=== PATIENT | male | born 1990 | race Caucasian/White ===

== ENCOUNTER 2016-03-26 15:07 | Emergency (ER) | payer OTHER ==
--- NOTE | 2016-03-26 15:41 | ED NURSING NOTES ---
Clinical Report - Nurses [facility] [address] [place] [address] 03/26/2016 15:08 Patient: YEIMY MOCTEZUMA TRIAGE Triage time 15:35. Acuity: LEVEL 4. Chief Complaint: TOOTHACHE. Alert. No acute distress. THELMA COMA SCORE: [place] Coma Scale: 15- eyes open spontaneously (4); best verbal response- oriented x 4 (5); best motor response- obeys commands (6). --15:40 Lillian Hay R.N. 15:35 03/26/16. BP: 133/88. HR: 7. RR: 18. O2 saturation: 97% on room air. Temp: 98.3 F (oral). Pain level now: 810. --15:40 Lillian Hay R.N. Weight: 81.6 kg stated. Height/Length: 74 inches Per Patient. BMI: 23.1. --15:38 Lillian Hay R.N. Medications None. --15:36 Lillian Hay R.N. Medication/allergy information source: the patient. --15:40 Lillian Hay R.N. Allergies Penicillins. --15:36 Lillian Hay R.N. Gabapentin. --15:36 Lillian Hay R.N. Hydrocodone. --15:37 Lillian Hay R.N. History Arrived by private vehicle. Historian: patient. Unaccompanied. Primary physician (Malik). Onset. (about 4 days). SOCIAL HX: Light tobacco smoker- less than 1/2 a pack per day. No alcohol use or drug use. FALL RISK ASSESSMENT: Fall risk assessment completed. No fall risk identified. FUNCTIONAL ASSESSMENT: Functional assessment: no impairments noted. LEARNING NEEDS ASSESSMENT: The learning needs assessment revealed no barriers. --15:40 Lillian Hay R.N. PROBLEMS: Cervical Radiculopathy. Wound Check. Back Injury. Herniated Disk. Myofascial Strain. URI. Otitis Media. Lumbar Strain. Crohn's Disease. Scoliosis. Back Pain. --15:39 Lillian Hay R.N. ADDITIONAL SURGERIES: Tympanostomy Tubes. --15:39 Lillian Hay R.N. Assessment GENERAL / NEURO / PSYCH: Alert. Oriented X 4. Appears in no acute distress. Patient appears calm and cooperative. RESPIRATORY: Respirations not labored. SKIN: Skin is warm and dry. --15:40 Lillian Hay R.N. Interventions ID and allergy band on patient. To treatment room. --15:40 Lillian Hay R.N. PHYSICAL ASSESSMENT 16:12 03/26/16. Ambulatory to room. GENERAL / NEURO / PSYCH: Alert. Oriented X 4. Appears in no acute distress. RESPIRATORY: Respirations not labored. SKIN: Skin is warm and dry. --16:12 Lillian Hay R.N. NURSING PROGRESS NOTES 15:50 03/26/2016 Clindamycin PO Tablets 150 mg given. Allergies verified and confirmed 5 rights. --16:01 Lillian Hay R.N. 15:35. Head of bed elevated. Call light placed in reach. Side rails up x 1. Bed placed in lowest position. --16:13 Lillian Hay R.N. 15:50. The patient is calm. Overall patient status is the same- he states feels the same. GENERAL / NEURO / PSYCH: Alert. Oriented X 4. RESPIRATORY: No respiratory distress. SKIN: Skin is warm and dry. --16:15 Lillian Hay R.N. DISPOSITION / DISCHARGE Departure time: 1550. Condition at departure: stable. No learning barriers present. Discharge instructions provided and reviewed with the patient. Reviewed medication(s). Prescription(s) given to the patient. Patient verbalized understanding. Written instructions provided in Welsh. The patient was discharged home and unaccompanied at time of discharge. He left the Emergency Department ambulatory and via private vehicle. FALL RISK ASSESSMENT: Fall risk assessment completed. No fall risk identified. --16:14 Lillian Hay R.N. 15:35 03/26/16. Pain level now: 5/10. --16:14 Lillian Hay R.N. Locked/Released at 03/26/2016 16:16 by Lillian Hay R.N.
--- NOTE | 2016-03-26 15:41 | ED ORDER SUMMARY ---
..... Patient: YEIMY MOCTEZUMA OrderSheet [facility] VisitID: [id number] [place] [address] 25y, M Registration Date/Time: 03/26/2016 ORDER SHEET Weight: 81.6 kg (stated) Allergies: Penicillins, Gabapentin, Hydrocodone GENERAL ORDERS: MEDICATION ORDERS: Tramadol PO 50 mg (NOW) (15:39 03/26/2016 Adan Ceballos.AIza-C) (Ack 15:44 Mike R.N.) (Cancelled: Patient [id number]:00 Mike R.N.) Clindamycin PO 150 mg (NOW) (15:40 03/26/2016 Adan Ceballos.AIza-C) (Ack 15:44 Mike R.N.) (16:01 Mike R.N.) IV FLUIDS: ORDER SHEET NOTES: [Electronically signed by Marian Aguayo P.A.-C (15:51 03/26/2016)] [Electronically signed by Lillian Hay R.N. (16:16 03/26/2016)] [Electronically locked/signed by Lillian Hay R.N. (16:16 03/26/2016)]
--- NOTE | 2016-03-26 15:41 | ED ORDER SUMMARY ---
..... Patient: YEIMY MOCTEZUMA OrderSheet [facility] VisitID: [id number] [place] [address] 25y, M Registration Date/Time: 03/26/2016 ORDER SHEET Weight: 81.6 kg (stated) Allergies: Penicillins, Gabapentin, Hydrocodone GENERAL ORDERS: MEDICATION ORDERS: Tramadol PO 50 mg (NOW) (15:39 03/26/2016 Adan Ceballos.AIza-C) (Ack 15:44 Mike R.N.) (Cancelled: Patient [id number]:00 Mike R.N.) Clindamycin PO 150 mg (NOW) (15:40 03/26/2016 Adan Ceballos.AIza-C) (Ack 15:44 Mike R.N.) (16:01 Mike R.N.) IV FLUIDS: ORDER SHEET NOTES: [Electronically signed by Marian Aguayo P.A.-C (15:51 03/26/2016)] [Electronically signed by Lillian Hay R.N. (16:16 03/26/2016)] [Electronically locked/signed by Lillian Hay R.N. (16:16 03/26/2016)]
--- NOTE | 2016-03-26 15:41 | ED CLINICAL REPORT ---
Clinical Report - Physicians/Mid Levels [facility] [address] [place] [address] 03/26/2016 15:08 Patient: YEIMY MOCTEZUMA Time Seen: 15:48 Mar 26 2016. Arrived- By private vehicle. Historian- patient. HISTORY OF PRESENT ILLNESS Chief Complaint: DENTAL PAIN. This started just prior to arrival and is still present. Pain described as mild. No mouth sores or nasal congestion. He has had toothache. (Patient reports right dental pain over the last 2 days, with facial swelling. Reports pain with eating and swallowing. Reports difficulty sleeping secondary to pain, has been taken Motrin. Denies any fevers or chills. Denies any cough. Denies any rashes. Denies any recent dental trauma. Reports history of recurrent problems with the right upper region of his teeth.). REVIEW OF SYSTEMS No fever, cough, difficulty with urination, skin rash or enlarged lymph nodes. All systems otherwise negative, except as recorded above. PAST HISTORY Problems: Cervical Radiculopathy. Wound Check. Back Injury. Herniated Disk. Myofascial Strain. URI. Otitis Media. Lumbar Strain. Crohn's Disease. Scoliosis. Back Pain. Additional Surgeries: Tympanostomy Tubes. Medications: None. Allergies: Gabapentin. Hydrocodone. Penicillins. SOCIAL HISTORY Smoker- current status unknown. No alcohol use or drug use. ADDITIONAL NOTES The nursing notes have been reviewed. PHYSICAL EXAM Vital Signs: 03/26/2016 15:35 BP: 133/88. HR: 7. RR: 18. O2 saturation: 97%. Temp: 98.3 F. Pain level now: 8/10. Appearance: Alert. ENT: Dental decay (canine). Ears normal. Nose normal. Pharynx normal. Lips normal. Gums normal. No trismus present. Uvula midline. No peritonsillar mass or dental tenderness. Neck: Trachea midline. No adenopathy. Thyroid normal. No thyromegaly. CVS: Normal heart rate and rhythm. Heart sounds normal. Respiratory: No respiratory distress. Breath sounds normal. Abdomen: Soft. Neuro: Oriented X 3. PROGRESS AND PROCEDURES Course of Care: Patient here in the ER, with right dental pain, and the canine, with tooth decay to the gumline, surrounding erythema, no palpable abscess or mass. Uvula is midline, no facial swelling externally noted. Patient able to swallow, no muffled voice. Tolerating his own secretions well. Patient is stable. Physical exam findings are improved. Patient/family counseled. Disposition: Discharged. Condition: good. CLINICAL IMPRESSION Moderate dental pain. INSTRUCTIONS Drink plenty of fluids. Prescription Medications: Cleocin 150 mg: take 1 capsule orally every 8 hours for 10 days. No refill. Substitution is permissible. Tylenol with Codeine Tylenol #3 (30 mg / 300 mg) : take 1 tablet orally every 6 hours as needed for pain. Dispense ten (10). No refill. Substitution is permissible. Follow-up: Follow up with your doctor in three days. Understanding of the discharge instructions verbalized by patient. (Electronically signed by Marian Aguayo P.A.-C 03/26/2016 15:51)
--- NOTE | 2016-03-26 15:41 | ED NURSING NOTES ---
Clinical Report - Nurses [facility] [address] [place] [address] 03/26/2016 15:08 Patient: YEIMY MOCTEZUMA TRIAGE Triage time 15:35. Acuity: LEVEL 4. Chief Complaint: TOOTHACHE. Alert. No acute distress. THELMA COMA SCORE: [place] Coma Scale: 15- eyes open spontaneously (4); best verbal response- oriented x 4 (5); best motor response- obeys commands (6). --15:40 Lillian Hay R.N. 15:35 03/26/16. BP: 133/88. HR: 7. RR: 18. O2 saturation: 97% on room air. Temp: 98.3 F (oral). Pain level now: 810. --15:40 Lillian Hay R.N. Weight: 81.6 kg stated. Height/Length: 74 inches Per Patient. BMI: 23.1. --15:38 Lillian Hay R.N. Medications None. --15:36 Lillian Hay R.N. Medication/allergy information source: the patient. --15:40 Lillian Hay R.N. Allergies Penicillins. --15:36 Lillian Hay R.N. Gabapentin. --15:36 Lillian Hay R.N. Hydrocodone. --15:37 Lillian Hay R.N. History Arrived by private vehicle. Historian: patient. Unaccompanied. Primary physician (Malik). Onset. (about 4 days). SOCIAL HX: Light tobacco smoker- less than 1/2 a pack per day. No alcohol use or drug use. FALL RISK ASSESSMENT: Fall risk assessment completed. No fall risk identified. FUNCTIONAL ASSESSMENT: Functional assessment: no impairments noted. LEARNING NEEDS ASSESSMENT: The learning needs assessment revealed no barriers. --15:40 Lillian Hay R.N. PROBLEMS: Cervical Radiculopathy. Wound Check. Back Injury. Herniated Disk. Myofascial Strain. URI. Otitis Media. Lumbar Strain. Crohn's Disease. Scoliosis. Back Pain. --15:39 Lillian Hay R.N. ADDITIONAL SURGERIES: Tympanostomy Tubes. --15:39 Lillian Hay R.N. Assessment GENERAL / NEURO / PSYCH: Alert. Oriented X 4. Appears in no acute distress. Patient appears calm and cooperative. RESPIRATORY: Respirations not labored. SKIN: Skin is warm and dry. --15:40 Lillian Hay R.N. Interventions ID and allergy band on patient. To treatment room. --15:40 Lillian Hay R.N. PHYSICAL ASSESSMENT 16:12 03/26/16. Ambulatory to room. GENERAL / NEURO / PSYCH: Alert. Oriented X 4. Appears in no acute distress. RESPIRATORY: Respirations not labored. SKIN: Skin is warm and dry. --16:12 Lillian Hay R.N. NURSING PROGRESS NOTES 15:50 03/26/2016 Clindamycin PO Tablets 150 mg given. Allergies verified and confirmed 5 rights. --16:01 Lillian Hay R.N. 15:35. Head of bed elevated. Call light placed in reach. Side rails up x 1. Bed placed in lowest position. --16:13 Lillian Hay R.N. 15:50. The patient is calm. Overall patient status is the same- he states feels the same. GENERAL / NEURO / PSYCH: Alert. Oriented X 4. RESPIRATORY: No respiratory distress. SKIN: Skin is warm and dry. --16:15 Lillian Hay R.N. DISPOSITION / DISCHARGE Departure time: 1550. Condition at departure: stable. No learning barriers present. Discharge instructions provided and reviewed with the patient. Reviewed medication(s). Prescription(s) given to the patient. Patient verbalized understanding. Written instructions provided in Pashto. The patient was discharged home and unaccompanied at time of discharge. He left the Emergency Department ambulatory and via private vehicle. FALL RISK ASSESSMENT: Fall risk assessment completed. No fall risk identified. --16:14 Lillian Hay R.N. 15:35 03/26/16. Pain level now: 5/10. --16:14 Lillian Hay R.N. Locked/Released at 03/26/2016 16:16 by Lillian Hay R.N.
--- NOTE | 2016-03-26 15:41 | ED CLINICAL REPORT ---
Clinical Report - Physicians/Mid Levels [facility] [address] [place] [address] 03/26/2016 15:08 Patient: YEIMY MOCTEZUMA Time Seen: 15:48 Mar 26 2016. Arrived- By private vehicle. Historian- patient. HISTORY OF PRESENT ILLNESS Chief Complaint: DENTAL PAIN. This started just prior to arrival and is still present. Pain described as mild. No mouth sores or nasal congestion. He has had toothache. (Patient reports right dental pain over the last 2 days, with facial swelling. Reports pain with eating and swallowing. Reports difficulty sleeping secondary to pain, has been taken Motrin. Denies any fevers or chills. Denies any cough. Denies any rashes. Denies any recent dental trauma. Reports history of recurrent problems with the right upper region of his teeth.). REVIEW OF SYSTEMS No fever, cough, difficulty with urination, skin rash or enlarged lymph nodes. All systems otherwise negative, except as recorded above. PAST HISTORY Problems: Cervical Radiculopathy. Wound Check. Back Injury. Herniated Disk. Myofascial Strain. URI. Otitis Media. Lumbar Strain. Crohn's Disease. Scoliosis. Back Pain. Additional Surgeries: Tympanostomy Tubes. Medications: None. Allergies: Gabapentin. Hydrocodone. Penicillins. SOCIAL HISTORY Smoker- current status unknown. No alcohol use or drug use. ADDITIONAL NOTES The nursing notes have been reviewed. PHYSICAL EXAM Vital Signs: 03/26/2016 15:35 BP: 133/88. HR: 7. RR: 18. O2 saturation: 97%. Temp: 98.3 F. Pain level now: 8/10. Appearance: Alert. ENT: Dental decay (canine). Ears normal. Nose normal. Pharynx normal. Lips normal. Gums normal. No trismus present. Uvula midline. No peritonsillar mass or dental tenderness. Neck: Trachea midline. No adenopathy. Thyroid normal. No thyromegaly. CVS: Normal heart rate and rhythm. Heart sounds normal. Respiratory: No respiratory distress. Breath sounds normal. Abdomen: Soft. Neuro: Oriented X 3. PROGRESS AND PROCEDURES Course of Care: Patient here in the ER, with right dental pain, and the canine, with tooth decay to the gumline, surrounding erythema, no palpable abscess or mass. Uvula is midline, no facial swelling externally noted. Patient able to swallow, no muffled voice. Tolerating his own secretions well. Patient is stable. Physical exam findings are improved. Patient/family counseled. Disposition: Discharged. Condition: good. CLINICAL IMPRESSION Moderate dental pain. INSTRUCTIONS Drink plenty of fluids. Prescription Medications: Cleocin 150 mg: take 1 capsule orally every 8 hours for 10 days. No refill. Substitution is permissible. Tylenol with Codeine Tylenol #3 (30 mg / 300 mg) : take 1 tablet orally every 6 hours as needed for pain. Dispense ten (10). No refill. Substitution is permissible. Follow-up: Follow up with your doctor in three days. Understanding of the discharge instructions verbalized by patient. (Electronically signed by Marian Aguayo P.A.-C 03/26/2016 15:51)
--- NOTE | 2016-03-26 16:16 | ED MAR SUMMARY ---
..... Medication Administration Record [facility] [address] [place] [address] Patient: YEIMY MOCTEZUMA Visit ID: [id number] 25y, M Weight: 81.6 kg Height/Length: 74 in BMI: 23.1 ALLERGIES: Hydrocodone, Penicillins, Gabapentin Given 15:50 03/26/2016 Lillian Hay RGerman Medication Administered: CLINDAMYCIN [PO], Dose: 150 mg Tablets PO. Medication Ordered: Clindamycin PO 150 mg (NOW).
--- NOTE | 2016-03-26 16:16 | ED MAR SUMMARY ---
..... Medication Administration Record [facility] [address] [place] [address] Patient: YEIMY MOCTEZUMA Visit ID: [id number] 25y, M Weight: 81.6 kg Height/Length: 74 in BMI: 23.1 ALLERGIES: Hydrocodone, Penicillins, Gabapentin Given 15:50 03/26/2016 Lillian Hay RGerman Medication Administered: CLINDAMYCIN [PO], Dose: 150 mg Tablets PO. Medication Ordered: Clindamycin PO 150 mg (NOW).
--- NOTE | 2016-03-26 16:16 | ED MED RECONCILIATION SUMMARY ---
Patient: YEIMY MOCTEZUMA Medication Reconciliation Report [facility] VisitID: [id number] [place] [address] 25y, M Registration Date/Time: 03/26/2016 Weight: 81.6 kg Height/Length: 74 in. BMI: 23.1 ALLERGIES: Gabapentin, Hydrocodone, Penicillins The patient's Home Medications are listed below: NONE. The source(s) of the original Home Medication information: patient The following Medications were given to the patient in the Emergency Department: Clindamycin [PO] PO 150 mg, administered: 03/26/2016 3:50:00 PM The following Medications were prescribed to the patient: Cleocin 150 mg: take 1 capsule orally every 8 hours for 10 days. No refill. Substitution is permissible. -- Marian Aguayo, P.A.-C Tylenol with Codeine Tylenol #3 (30 mg / 300 mg) : take 1 tablet orally every 6 hours as needed for pain. Dispense ten (10). No refill. Substitution is permissible. -- Marian Aguayo, P.A.-C
--- NOTE | 2016-03-26 16:16 | ED DISCHARGE INSTRUCTIONS ---
Patient: YEIMY MOTCEZUMA General Instructions [facility] VisitID: [id number] [place] [address] 25y, M Registration Date/Time: 03/26/2016 Moderate dental pain. INSTRUCTIONS Drink plenty of fluids. Prescription Medications: Cleocin 150 mg: take 1 capsule orally every 8 hours for 10 days. No refill. Substitution is permissible. Tylenol with Codeine Tylenol #3 (30 mg / 300 mg) : take 1 tablet orally every 6 hours as needed for pain. Dispense ten (10). No refill. Substitution is permissible. Follow-up: Follow up with your doctor in three days. Understanding of the discharge instructions verbalized by patient. ADDITIONAL INFORMATION Dental Pain A crack or cavity in the tooth, which exposes the sensitive inner area of the tooth can cause tooth pain. An infection in the gum or the root of the tooth can cause pain and swelling. The pain is often made worse by drinking hot or cold fluids, or biting on hard foods. Pain may spread from the tooth to the ear or jaw on the same side. Home Care: Avoid hot and cold foods and liquids since your tooth may be sensitive to temperature changes. If your tooth is chipped or cracked, or if there is a large open cavity, apply OIL OF CLOVES (available [id number]-fclqrid in drug stores) directly to the tooth to reduce pain. Some pharmacies carry an jwgt-rlm-padsgxi "toothache kit." This contains a paste, which can be applied over the exposed tooth to decrease sensitivity. A cold pack on your jaw over the sore area may help reduce pain. You may use acetaminophen (Tylenol) or ibuprofen (Motrin, Advil) to control pain, unless another medicine was prescribed. [ NOTE: If you have chronic liver or kidney disease or ever had a stomach ulcer or GI bleeding, talk with your doctor before using these medicines.] If you have signs of an infection, an antibiotic will be given. Take it as directed. Follow-Up as directed with a dentist. Your pain may go away with the treatment given. However, only a dentist can fully evaluate and treat the cause and prevent the pain from coming back again. TOOTHACHE IS A SIGN OF DISEASE IN YOUR TOOTH AND SHOULD BE EXAMINED AND TREATED BY A DENTIST. Get Prompt Medical Attention if any of the following occur: Your face becomes swollen or red Pain worsens or spreads to the neck Fever over 100.4 F (38.0 C) Unusual drowsiness; headache or stiff neck; weakness or fainting Pus drains from the tooth Difficulty swallowing or breathing Clindamycin Hydrochloride Oral capsule What is this medicine? CLINDAMYCIN (ROSSANAIN amy MANLEY sin) is a lincosamide antibiotic. It is used to treat certain kinds of bacterial infections. It will not work for colds, flu, or other viral infections. How should I use this medicine? Take this medicine by mouth with a full glass of water. Follow the directions on the prescription label. You can take this medicine with food or on an empty stomach. If the medicine upsets your stomach, take it with food. Take your medicine at regular intervals. Do not take your medicine more often than directed. Take all of your medicine as directed even if you think your are better. Do not skip doses or stop your medicine early. Talk to your sizing machine operator regarding the use of this medicine in children. Special care may be needed. What side effects may I notice from receiving this medicine? Side effects that you should report to your doctor or health group care worker as soon as possible: allergic reactions like skin rash, itching or hives, swelling of the face, lips, or tongue dark urine pain on swallowing redness, blistering, peeling or loosening of the skin, including inside the mouth unusual bleeding or bruising unusually weak or tired yellowing of eyes or skin Side effects that usually do not require medical attention (report to your doctor or health group care worker if they continue or are bothersome): diarrhea itching in the rectal or genital area joint pain nausea, vomiting stomach pain What may interact with this medicine? chloramphenicol erythromycin kaolin products What if I miss a dose? If you miss a dose, take it as soon as you can. If it is almost time for your next dose, take only that dose. Do not take double or extra doses. Where should I keep my medicine? Keep out of the reach of children. Store at room temperature between 20 and 25 degrees C (68 and 77 degrees F). Throw away any unused medicine after the expiration date. What should I tell my health care provider before I take this medicine? They need to know if you have any of these conditions: kidney disease liver disease stomach problems like colitis an unusual or allergic reaction to clindamycin, lincomycin, or other medicines, foods, dyes like tartrazine or preservatives or trying to get breast-feeding What should I watch for while using this medicine? Tell your doctor or healthcare professional if your symptoms do not start to get better or if they get worse. Do not treat diarrhea with over the counter products. Contact your doctor if you have diarrhea that lasts more than 2 days or if it is severe and watery. Acetaminophen, Codeine Phosphate Oral tablet What is this medicine? ACETAMINOPHEN; CODEINE (a set a ALPHONSE oumou fen; KOE huber) is a pain reliever. It is used to treat mild to moderate pain. How should I use this medicine? Take this medicine by mouth with a full glass of water. Follow the directions on the prescription label. If the medicine upsets your stomach, take the medicine with food or milk. Do not take more medicine than you are told to take. Talk to your sizing machine operator regarding the use of this medicine in children. Special care may be needed. What side effects may I notice from receiving this medicine? Side effects that you should report to your doctor or health group care worker as soon as possible: allergic reactions like skin rash, itching or hives, swelling of the face, lips, or tongue breathing difficulties, wheezing confusion light headedness or fainting spells severe stomach pain yellowing of the skin or the whites of the eyes Side effects that usually do not require medical attention (report to your doctor or health group care worker if they continue or are bothersome): dizziness drowsiness nausea, vomiting What may interact with this medicine? alcohol antihistamines benztropine drugs for bladder problems like solifenacin, trospium, oxybutynin, tolterodine, hycosamine, and methscopolamine drugs for breathing problems like ipratropium and tiotropium drugs for certain stomach or intestine problems like propantheline, homatropine methylbromide, glycopyrrolate, atropine, belladonna, and dicyclomine medicines for depression, anxiety, or psychotic disturbances medicines for sleep muscle relaxants naltrexone narcotic medicines (opiates) for pain phenothiazines like perphenazine, thioridazine, chlorpromazine, mesoridazine, fluphenazine, prochlorperazine, promazine, trifluoperazine scopolamine tramadol trihexyphenidyl What if I miss a dose? If you miss a dose, take it as soon as you can. If it is almost time for your next dose, take only that dose. Do not take double or extra doses. Where should I keep my medicine? Keep out of the reach of children. This medicine can be abused. Keep your medicine in a safe place to protect it from theft. Do not share this medicine with anyone. Selling or giving away this medicine is dangerous and against the law. Store at room temperature between 15 and 30 degrees C (59 and 86 degrees F). Protect from light. Keep container tightly closed. Throw away any unused medicine after the expiration date. Discard unused medicine and used packaging carefully. Pets and children can be harmed if they find used or lost packages. What should I tell my health care provider before I take this medicine? They need to know if you have any of these conditions: brain tumor Crohn's disease, inflammatory bowel disease, or ulcerative colitis drink more than 3 alcohol containing drinks per day drug abuse or addiction head injury heart or circulation problems kidney disease or problems going to the bathroom liver disease lung disease, asthma, or breathing problems an unusual or allergic reaction to acetaminophen, codeine, salicylates, other opioid analgesics, other medicines, foods, dyes, or preservatives or trying to get breast-feeding What should I watch for while using this medicine? Tell your doctor or health group care worker if your pain does not go away, if it gets worse, or if you have new or a different type of pain. You may develop tolerance to the medication. Tolerance means that you will need a higher dose of the medication for pain relief. Tolerance is normal and is expected if you take the medicine for a long time. Do not suddenly stop taking your medicine because you may develop a severe reaction. Your body becomes used to the medicine. This does NOT mean you are addicted. Addiction is a behavior related to getting and using a drug for a non medical reason. If you have pain, you have a medical reason to take pain medicine. Your doctor will tell you how much medicine to take. If your doctor wants you to stop the medicine, the dose will be slowly lowered over time to avoid any side effects. You may get drowsy or dizzy. Do not drive, use machinery, or do anything that needs mental alertness until you know how this medicine affects you. Do not stand or sit up quickly, especially if you are an older patient. This reduces the risk of dizzy or fainting spells. Alcohol may interfere with the effect of this medicine. Avoid alcoholic drinks. There are different types of narcotic medicines (opiates) for pain. If you take more than one type at the same time, you may have more side effects. Give your health care provider a list of all medicines you use. Your doctor will tell you how much medicine to take. Do not take more medicine than directed. Call emergency for help if you have problems breathing. The medicine will cause constipation. Try to have a bowel movement at least every 2 to 3 days. If you do not have a bowel movement for 3 days, call your doctor or health group care worker. Do not take Tylenol (acetaminophen) or medicines that have acetaminophen with this medicine. Too much acetaminophen can be very dangerous. Many nonprescription medicines contain acetaminophen. Always read the labels carefully to avoid taking more acetaminophen. Immediately call your physician or get emergency help if you are breast-feeding and your baby is sleepier than usual, is limp, or has difficulty or breathing. You have been given the following additional information: Dental Pain Clindamycin Hydrochloride Oral capsule Acetaminophen, Codeine Phosphate Oral tablet (Electronically signed by Marian Aguayo P.A.-C 03/26/2016 15:51)
--- NOTE | 2016-03-26 16:16 | ED MED RECONCILIATION SUMMARY ---
Patient: YEIMY MOCTEZUMA Medication Reconciliation Report [facility] VisitID: [id number] [place] [address] 25y, M Registration Date/Time: 03/26/2016 Weight: 81.6 kg Height/Length: 74 in. BMI: 23.1 ALLERGIES: Gabapentin, Hydrocodone, Penicillins The patient's Home Medications are listed below: NONE. The source(s) of the original Home Medication information: patient The following Medications were given to the patient in the Emergency Department: Clindamycin [PO] PO 150 mg, administered: 03/26/2016 3:50:00 PM The following Medications were prescribed to the patient: Cleocin 150 mg: take 1 capsule orally every 8 hours for 10 days. No refill. Substitution is permissible. -- Marian Aguayo, P.A.-C Tylenol with Codeine Tylenol #3 (30 mg / 300 mg) : take 1 tablet orally every 6 hours as needed for pain. Dispense ten (10). No refill. Substitution is permissible. -- Marian Aguayo, P.A.-C
== END 2016-03-26 15:50 | disposition home or self-care (01) ==
LOC: ED SRH 15:07
DX: K08.89 Other specified disorders of teeth and supporting structures (principal); K02.9 Dental caries, unspecified; Z88.5 Allergy status to narcotic agent; Z88.0 Allergy status to penicillin

== ENCOUNTER 2016-04-01 17:12 | Emergency (ER) | payer OTHER ==
--- NOTE | 2016-04-01 17:52 | DIAGNOSTIC IMAGING REPORT ---
PROCEDURE: XR CERVICAL SPINE 2 OR 3 VIEW INDICATION: NECK TRAUMA/INJURY TECHNIQUE: Three views. COMPARISON: Compare radiographs of the cervical spine and 12/01/2015. FINDINGS: Osseous structures and disc spaces are normal. No evidence of an acute process or fracture. IMPRESSION: 1. Negative cervical spine.
--- NOTE | 2016-04-01 17:56 | ED CLINICAL REPORT ---
Clinical Report - Physicians/Mid Levels [facility] [address] [place] [address] 04/01/2016 17:12 Patient: YEIMY MOCTEZUMA Time Seen: 17:16; initial patient contact, initial documentation, patient care assumed. Arrived- By private vehicle. Historian- patient. RETURN VISIT: recently seen in this ED by another ED physician. Seen now for a new unrelated complaint. HISTORY OF PRESENT ILLNESS Chief Complaint: NECK PAIN. Onset- about 1 weeks ago and it is still present. Modifying factors- worsened by rotation of the head to the right or left or neck flexion. Relieved by taking prescription medications. It is described as being moderate in degree and in the area of the cervical spine and right side of the cervical spine. The quality is noted to be "pain". No radiation. No bladder dysfunction, bowel dysfunction, sensory loss or motor loss. Patient notes the possibility of an injury but denies injury to the head or chest. Mechanism of injury- (was hit in back of head and neck by gas tank). No other injury. Similar symptoms previously: None. Recent medical care: The patient was seen recently at this facility and another facility in the emergency department. ( txed at [facility] on 03/28 for same thing, which pt didn't tell me about, found this info on tamiko report was also seen here a few days ago for tooth abscess). REVIEW OF SYSTEMS No difficulty breathing, chest pain or abdominal pain. All systems otherwise negative, except as recorded above. PAST HISTORY See nurses notes. PROBLEMS: Dental Pain. Cervical Radiculopathy. Back Injury. Herniated Disk. Myofascial Strain. Otitis Media. Lumbar Strain. Crohn's Disease. Scoliosis. Back Pain. --17:23 Carrol Wilson R.N. ADDITIONAL SURGERIES: Tympanostomy Tubes. --17:23 Carrol Wilson R.N. SOCIAL HISTORY Light tobacco smoker. Occasional alcohol use. No drug use. Is a local resident. FAMILY HISTORY Negative. ADDITIONAL NOTES The nursing notes have been reviewed with agreement regarding the chief complaint, HPI, ROS, PMH and patient medications and allergies. PHYSICAL EXAM Vital Signs: 04/01/2016 17:20 BP: 112/85. HR: 108. RR: 18. O2 saturation: 100%. Temp: 98.5 F. Pain level now: 10/13. Have been reviewed as abnormal and appear to be correct. Blood pressure normal. Tachycardic. Respiratory rate normal. Temperature normal. Oxygen saturation normal. Appearance: Alert. No acute distress. HEENT: Normal external inspection. Eyes: Pupils equal, round and reactive to light. ENT: Ears normal. Pharynx normal. Neck: Neck tenderness. Abnormal inspection. Painful ROM. Mild pain in the entire posterior neck upon turning the head to the right, turning the head to the left, lifting the head, flexing the neck and extending the neck. Decrease in ROM. No muscle spasm in the neck. Mild vertebral tenderness of the lower cervical spine. Soft tissue tenderness in the right lower neck area. No lymphadenopathy or meningeal signs. CVS: Normal heart rate and rhythm. Heart sounds normal. Pulses normal. Respiratory: No respiratory distress. Breath sounds normal. Chest nontender. Back: Normal inspection. No tenderness. Painless ROM. Skin: Skin warm and dry. Normal skin color. No rash. Normal skin turgor. Extremities: Extremities exhibit normal ROM. Extremities nontender. Neuro: Oriented X 3. Mood/affect normal. No motor deficit. No sensory deficit. LABS, X-RAYS, AND EKG X-Rays: C-spine series negative. C-Spine X-rays: (IMPRESSION: 1. Negative cervical spine. Electronically Final signed by:Shailesh Lopez MD 04/01/2016 5:48:52 PM). PROGRESS AND PROCEDURES Course of Care: 17:37 04/01/16. pt has tamiko for narcs and frequent er visits, pt has been to ER x4 visit in Mar, today is 5th visit, see report for full details, got narcs filled on 03/26, 03/29 and 03/30. Patient counseled in person regarding the patient's stable condition, test results and diagnosis. 17:55. Differential Diagnosis: I considered sprain, ligament injury, tendon injury, fracture, stress fracture, degenerative joint disease and arthritis as a possible cause of joint pain in this patient. (substance abuse, cervical stenosis). Above considerations are based on history, physical exam and X-Ray data. Differential diagnosis was discussed with patient. Disposition: Discharged home in good and unchanged condition (17:56). Condition: good and stable. CLINICAL IMPRESSION Acute neck pain associated with cervical strain. No neuro deficit. INSTRUCTIONS Warnings: GENERAL WARNINGS: Return or contact your physician immediately if your condition worsens or changes unexpectedly, if not improving as expected, or if other problems arise. SPECIFICALLY, return if you develop numbness or incontinence of feces (loss of bowel control) or urine (loss of bladder control). Prescription Medications: Naproxen 500 mg tablets: take 1 orally every 12 hours as needed for pain. Dispense twenty (20). No refills. Flexeril 10 mg: Take 1 orally every 8 hours as needed for muscle spasm. Dispense twenty (20). No refills. Substitution is permissible. Follow-up: Follow up with your doctor in about one week as needed. Call for an appointment. Summary of care provided to patient. Understanding of the discharge instructions verbalized by patient. Follow-up with: Janice Fitzgerald MD, Neurology, , [address] , [place], [id number] Follow up in about one week as needed. Call for an appointment. Summary of care provided to patient. (Electronically signed by Maria De Jesus Cristina A.R.N.P. 04/01/2016 18:59)
--- NOTE | 2016-04-01 17:56 | ED ORDER SUMMARY ---
..... Patient: YEIMY MOCTEZUMA OrderSheet [facility] VisitID: [id number] [address] [place] [address] 25y, M Registration Date/Time: 04/01/2016 ORDER SHEET Weight: 81.6 kg (stated) Allergies: Penicillins, Gabapentin, Hydrocodone GENERAL ORDERS: Cervical Spine 2 or 3V Urgent (17:35 04/01/2016 Alex A.R.N.P.) (17:55 [facility]) MEDICATION ORDERS: IV FLUIDS: ORDER SHEET NOTES: [Electronically signed by Carrol Wilson R.N. (18:14 04/01/2016)] [Electronically signed by Maria De Jesus CristinaR.N.PIza (18:59 04/01/2016)] [Electronically locked/signed by Carrol Wilson R.N. (18:14 04/01/2016)]
--- NOTE | 2016-04-01 17:56 | ED ORDER SUMMARY ---
..... Patient: YEIMY MOCTEZUMA OrderSheet [facility] VisitID: [id number] [address] [place] [address] 25y, M Registration Date/Time: 04/01/2016 ORDER SHEET Weight: 81.6 kg (stated) Allergies: Penicillins, Gabapentin, Hydrocodone GENERAL ORDERS: Cervical Spine 2 or 3V Urgent (17:35 04/01/2016 Alex A.R.N.P.) (17:55 [facility]) MEDICATION ORDERS: IV FLUIDS: ORDER SHEET NOTES: [Electronically signed by Carrol Wilson R.N. (18:14 04/01/2016)] [Electronically signed by Maria De Jesus CristinaR.N.PIza (18:59 04/01/2016)] [Electronically locked/signed by Carrol Wilson R.N. (18:14 04/01/2016)]
--- NOTE | 2016-04-01 17:56 | ED NURSING NOTES ---
Clinical Report - Nurses [facility] [address] [place] [address] 04/01/2016 17:12 Patient: YEIMY MOCTEZUMA TRIAGE Triage time 17:Apr 01 2016. Acuity: LEVEL 4. Chief Complaint: (gas tank fell on head). SEPSIS SCREEN: Sepsis Screen: negative. Negative (no infection suspected/documented). THELMA COMA SCORE: [place] Coma Scale: 15- eyes open spontaneously (4); best verbal response- oriented x 4 (5); best motor response- obeys commands (6). --17:26 Carrol Wilson R.N. 17:20 04/01/16. BP: 112/85. HR: 108. RR: 18. O2 saturation: 100%. Temp: 98.5 F. Pain level now: 10/13. --17:26 Carrol Wilson R.N. Weight: 81.6 kg stated. Height/Length: 74 inches Per Patient. BMI: 23.1. --17:19 Carrol Wilson R.N. Medications Clindamycin HCl Oral. --17:22 Carrol Wilson R.N. Medication/allergy information source: the patient. --17:26 Carrol Wilson R.N. Allergies Penicillins. --17:23 Carrol Wilson R.N. Gabapentin. --17:23 Carrol Wilson R.N. Hydrocodone. --17:23 Carrol Wilson R.N. History Arrived by private vehicle. Historian: patient. Location of injuries: neck. This occurred (7 days ago). ( states was helping his friend work on a car, he was reaching for a tool and knocked a gas tank over and it struck him on the top of the head. no loss of consciousness. Complains of head ache and neck pain. States this happened 1 week ago). He has had a headache and neck pain. No loss of consciousness. Treatment HOME WEATHERIZING WORKER: None. SOCIAL HX: Light tobacco smoker (cigarette)- less than 1/2 a pack per day. History of drug use: marijuana. No alcohol use. No infectious disease exposure. ABUSE ASSESSMENT: No report of abuse. SELF HARM ASSESSMENT: A self harm assessment was performed. The patient answered "no" to the question "Have you recently felt down, depressed, or hopeless?", "Have you noticed less interest or pleasure in doing things?", "Do you have thoughts of harming or killing yourself?", "Are you here because you tried to hurt yourself?", "Have you ever tried to hurt yourself before today?", "Have you recently had thoughts about harming or killing others?" and "Do you have any dangerous items in your possession?". --17:26 Carrol Wilson R.N. PROBLEMS: Dental Pain. Cervical Radiculopathy. Back Injury. Herniated Disk. Myofascial Strain. Otitis Media. Lumbar Strain. Crohn's Disease. Scoliosis. Back Pain. --17:23 Carrol Wilson R.N. ADDITIONAL SURGERIES: Tympanostomy Tubes. --17:23 Carrol Wilson R.N. Interventions ID band on patient. --17:26 Carrol Wilson R.N. PHYSICAL ASSESSMENT 17:20 04/01/16. GENERAL / NEURO / PSYCH: Alert. Oriented X 4. Appears in no acute distress. HEENT: Pupils equal, round and reactive to light. Head non-tender. Neck: tenderness (cervical spine surrounding tissue.). No deformity. No tracheal deviation. Head: tenderness (top of head). RESPIRATORY: Breath sounds within normal limits. CVS: Pulses within normal limits. Capillary refill less than 2 seconds. GI / : Abdomen soft. EXTREMITIES: Extremities exhibit normal ROM. Neuro-vascular status intact to the extremity. SKIN: Skin intact. Skin is warm and dry. --17:49 Carrol Wilson R.N. NURSING PROGRESS NOTES 17:20 04/01/16. The initial plan of care for this patient includes an assessment with efforts to address the presence of pain. This plan of care was discussed with the patient. Patient gowned. Patient identifiers checked. Call light placed in reach. Bed placed in lowest position. Brakes of bed on. Patient ready for evaluation. --17:49 Carrol Wilson R.N. Patient walked to radiology with tech. (and returned). --17:49 Carrol Wilson R.N. DISPOSITION / DISCHARGE 18:13 04/01/16. Condition at departure: unchanged and stable. The goals identified in the patient's plan of care were met. Reviewed medication(s) side effects, precautions, dosing and course information. Prescription(s) given to the patient. Reviewed referral to a primary care physician for followup. Patient verbalized understanding. Written instructions provided in [place]olan. ( PATIENT UPSET HE DID NOT RECEIVE STRONGER MEDICINE PRESCRIPTIONS.). The patient was discharged home and unaccompanied at time of discharge. He left the Emergency Department ambulatory and via private vehicle. FALL RISK ASSESSMENT: Fall risk assessment completed. No fall risk identified. --18:13 Carrol Wilson R.N. 17:20 04/01/16. BP: 112/85. HR: 108. RR: 18. O2 saturation: 100%. Temp: 98.5 F. Pain level now: 10/13. --18:13 Carrol Wilson R.N. Departure time: 18:13 Apr 01 2016. --18:13 Carrol Wilson R.N. Locked/Released at 04/01/2016 18:14 by Carrol Wilson R.N.
--- NOTE | 2016-04-01 19:00 | ED MED RECONCILIATION SUMMARY ---
Patient: YEIMY MOCTEZUMA Medication Reconciliation Report [facility] VisitID: [id number] [address] [place] [address] 25y, M Registration Date/Time: 04/01/2016 Weight: 81.6 kg Height/Length: 74 in. BMI: 23.1 ALLERGIES: Gabapentin, Hydrocodone, Penicillins The patient's Home Medications are listed below: THE FOLLOWING MEDICATIONS NEED TO BE RECONCILED: Clindamycin HCl Oral The source(s) of the original Home Medication information: patient The following Medications were given to the patient in the Emergency Department: None. The following Medications were prescribed to the patient: Naproxen 500 mg tablets: take 1 orally every 12 hours as needed for pain. Dispense twenty (20). No refills. -- Maria De Jesus Cristina A.R.NIzaP. Flexeril 10 mg: Take 1 orally every 8 hours as needed for muscle spasm. Dispense twenty (20). No refills. Substitution is permissible. -- Maria De Jesus Cristina A.R.N.P.
--- NOTE | 2016-04-01 19:00 | ED MAR SUMMARY ---
..... Medication Administration Record [facility] [address] [place], [place] [id number] Patient: YEIMY MOCTEZUMA Visit ID: [id number] 25y, M Weight: 81.6 kg Height/Length: 74 in BMI: 23.1 ALLERGIES: Hydrocodone, Gabapentin, Penicillins
--- NOTE | 2016-04-01 19:00 | ED DISCHARGE INSTRUCTIONS ---
Patient: YEIMY MOCTEZUMA General Instructions [facility] VisitID: [id number] [address] [place] [address] 25y, M Registration Date/Time: 04/01/2016 Acute neck pain associated with cervical strain. No neuro deficit. INSTRUCTIONS Warnings: GENERAL WARNINGS: Return or contact your physician immediately if your condition worsens or changes unexpectedly, if not improving as expected, or if other problems arise. SPECIFICALLY, return if you develop numbness or incontinence of feces (loss of bowel control) or urine (loss of bladder control). Prescription Medications: Naproxen 500 mg tablets: take 1 orally every 12 hours as needed for pain. Dispense twenty (20). No refills. Flexeril 10 mg: Take 1 orally every 8 hours as needed for muscle spasm. Dispense twenty (20). No refills. Substitution is permissible. Follow-up: Follow up with your doctor in about one week as needed. Call for an appointment. Summary of care provided to patient. Understanding of the discharge instructions verbalized by patient. Follow-up with: Janice Fitzgerald MD, Neurology, , [address] , [place], [id number] Follow up in about one week as needed. Call for an appointment. Summary of care provided to patient. ADDITIONAL INFORMATION Neck Pain [No Trauma] There are several possible causes of neck pain without injury: You can get a minor ligament sprain or muscle strain from a sudden minor neck movement. Sleeping with your neck in an awkward position can also cause this. Some persons respond to emotional stress by tensing the muscles of their neck, shoulders and upper back. Chronic spasm in these muscles can cause neck pain and sometimes headaches. Gradualwear and tearof the joints in the spine can cause degenerative arthritis.This can be a source of occasional or chronic neck pain. With aging or repeated small injuries to the neck, the spinal disks (the cushions between each spinal bone) may bulge and put pressure on a nearby spinal nerve. This causes tingling, pain or numbness spreading from the neck to the shoulder, arm or hand on one side. Acute neck pain usually gets better in one to two weeks. Neck pain related to disk disease, arthritis in the spinal joints or spinal stenosis (narrowing of the spinal canal) can become chronic and last for months or years. Unless you had a forceful physical injury (for example, a car accident or fall), X-rays are usually not ordered for the initial evaluation of neck pain. If pain continues and does not respond to medical treatment, x-rays and other tests may be performed at a later time. Home Care: Rest and relax the muscles. Use a comfortable pillow that supports the head and keeps the spine in a neutral position. The position of the head should not be tilted forward or backward. A rolled up towel may help for a custom fit. Some persons find relief with heat (hot shower, hot bath or heating pad) and massage, while others prefer cold packs (crushed or cubed ice in a plastic bag, wrapped in a towel) . Try both and use the method that feels best for 20 minutes several times a day. You may use acetaminophen (Tylenol) or ibuprofen (Motrin, Advil) to control pain, unless another medicine was prescribed. [ NOTE : If you have chronic liver or kidney disease or ever had a stomach ulcer or GI bleeding, talk with your doctor before using these medicines.] Follow Up with your physician or this facility if your symptoms do not show signs of improvement after one week. Physical therapy or further tests may be needed. [NOTE: A radiologist will review any X-rays or CT scans that were taken. We will notify you of any new findings that may affect your care.] Get Prompt Medical Attention if any of the following occur: Pain becomes worse or spreads into one or both arms Weakness or numbness in one or both arms Increasing headache Neck swelling, difficulty or painful swallowing Fever of 100.4F (38C) or higher, or as directed by your healthcare provider Neck Sprain Or Strain A sudden force that causes turning or bending of the neck (such as in a car accident) can stretch or tear muscles (strain) and ligaments (sprain) and cause neck pain. Sometimes neck pain occurs after a simple awkward movement. In either case, muscle spasm is commonly present and contributes to the pain. Unless you had a forceful physical injury (for example, a car accident or fall), X-rays are usually not ordered for the initial evaluation of neck pain. If pain continues and dose not respond to medical treatment, X-rays and other tests may be performed at a later time. Home care The following guidelines will help you care for your injury at home: You may feel more soreness and spasm the first few days after the injury. Reduce your activity level until symptoms begin to improve. When lying down, use a comfortable pillow that supports the head and keeps the spine in a neutral position. The position of the head should not be tilted forward or backward. Use ice packs (ice in a plastic bag, wrapped in a towel) to treat acute pain. Apply for 20 minutes every 24 hours during the first two days. Then, begin local heat (hot shower, hot bath or heating pad) andmassageto reduce muscle spasm. Some patients feel best alternating hot and cold treatments, or just staying with one method only. Do what feels the best to you and gives the most relief. You may use acetaminophen or ibuprofen to control pain, unless another pain medicine was prescribed.If you have chronic liver or kidney disease or ever had a stomach ulcer or GI bleeding, talk with your doctor before using these medicines. Follow-up care Follow up with your physician or this facility if your symptoms do not show signs of improvement. Physical therapy may be needed. If you had X-rays today, they didnt show any broken bones, breaks, or fractures. Sometimes fractures dont show up on the first X-ray. Bruises and sprains can sometimes hurt as much as a fracture. These injuries can take time to heal completely. If your symptoms dont improve or they get worse, talk with your doctor. You may need a repeat X-ray. When to seek medical care Get prompt medical attention if any of the following occur: Pain becomes worse or spreads into your arms Weakness or numbness in one or both arms Naproxen Sodium Oral tablet What is this medicine? NAPROXEN (na PROX en) is a non-steroidal anti-inflammatory drug (NSAID). It is used to reduce swelling and to treat pain. This medicine may be used for dental pain, headache, or painful monthly periods. It is also used for painful joint and muscular problems such as arthritis, tendinitis, bursitis, and gout. How should I use this medicine? Take this medicine by mouth with a glass of water. Follow the directions on the prescription label. Take it with food if your stomach gets upset. Try to not lie down for at least 10 minutes after you take it. Take your medicine at regular intervals. Do not take your medicine more often than directed. Long-term, continuous use may increase the risk of heart attack or stroke. A special MedGuide will be given to you by the pharmacist with each prescription and refill. Be sure to read this information carefully each time. Talk to your english composition teacher regarding the use of this medicine in children. Special care may be needed. What side effects may I notice from receiving this medicine? Side effects that you should report to your doctor or health care transitions manager as soon as possible: black or bloody stools, blood in the urine or vomit blurred vision chest pain difficulty breathing or wheezing nausea or vomiting severe stomach pain skin rash, skin redness, blistering or peeling skin, hives, or itching slurred speech or weakness on one side of the body swelling of eyelids, throat, lips unexplained weight gain or swelling unusually weak or tired yellowing of eyes or skin Side effects that usually do not require medical attention (report to your doctor or health care transitions manager if they continue or are bothersome): constipation headache heartburn What may interact with this medicine? alcohol aspirin cidofovir diuretics lithium methotrexate other drugs for inflammation like ketorolac or prednisone pemetrexed probenecid warfarin What if I miss a dose? If you miss a dose, take it as soon as you can. If it is almost time for your next dose, take only that dose. Do not take double or extra doses. Where should I keep my medicine? Keep out of the reach of children. Store at room temperature between 15 and 30 degrees C (59 and 86 degrees F). Keep container tightly closed. Throw away any unused medicine after the expiration date. What should I tell my health care provider before I take this medicine? They need to know if you have any of these conditions: asthma cigarette smoker drink more than 3 alcohol containing drinks a day heart disease or circulation problems such as heart failure or leg edema (fluid retention) high blood pressure kidney disease liver disease stomach bleeding or ulcers an unusual or allergic reaction to naproxen, aspirin, other NSAIDs, other medicines, foods, dyes, or preservatives or trying to get breast-feeding What should I watch for while using this medicine? Tell your doctor or health care transitions manager if your pain does not get better. Talk to your doctor before taking another medicine for pain. Do not treat yourself. This medicine does not prevent heart attack or stroke. In fact, this medicine may increase the chance of a heart attack or stroke. The chance may increase with longer use of this medicine and in people who have heart disease. If you take aspirin to prevent heart attack or stroke, talk with your doctor or health care transitions manager. Do not take other medicines that contain aspirin, ibuprofen, or naproxen with this medicine. Side effects such as stomach upset, nausea, or ulcers may be more likely to occur. Many medicines available without a prescription should not be taken with this medicine. This medicine can cause ulcers and bleeding in the stomach and intestines at any time during treatment. Do not smoke cigarettes or drink alcohol. These increase irritation to your stomach and can make it more susceptible to damage from this medicine. Ulcers and bleeding can happen without warning symptoms and can cause . You may get drowsy or dizzy. Do not drive, use machinery, or do anything that needs mental alertness until you know how this medicine affects you. Do not stand or sit up quickly, especially if you are an older patient. This reduces the risk of dizzy or fainting spells. This medicine can cause you to bleed more easily. Try to avoid damage to your teeth and gums when you brush or floss your teeth. Cyclobenzaprine Hydrochloride Oral tablet What is this medicine? CYCLOBENZAPRINE (belkis subramanian) is a muscle relaxer. It is used to treat muscle pain, spasms, and stiffness. How should I use this medicine? Take this medicine by mouth with a glass of water. Follow the directions on the prescription label. If this medicine upsets your stomach, take it with food or milk. Take your medicine at regular intervals. Do not take it more often than directed. Talk to your english composition teacher regarding the use of this medicine in children. Special care may be needed. What side effects may I notice from receiving this medicine? Side effects that you should report to your doctor or health care transitions manager as soon as possible: allergic reactions like skin rash, itching or hives, swelling of the face, lips, or tongue chest pain fast heartbeat hallucinations seizures vomiting Side effects that usually do not require medical attention (report to your doctor or health care transitions manager if they continue or are bothersome): headache What may interact with this medicine? Do not take this medicine with any of the following medications: cisapride droperidol flecainide grepafloxacin halofantrine levomethadyl MAOIs like Carbex, Eldepryl, Marplan, Nardil, and Parnate nilotinib pimozide probucol sertindole This medicine may also interact with the following medications: abarelix alcohol contrast dyes dolasetron guanethidine medicines for cancer medicines for depression, anxiety, or psychotic disturbances medicines to treat an irregular heartbeat medicines used for sleep or numbness during surgery or procedure methadone octreotide ondansetron palonosetron phenothiazines like chlorpromazine, mesoridazine, prochlorperazine, thioridazine some medicines for infection like alfuzosin, chloroquine, clarithromycin, levofloxacin, mefloquine, pentamidine, troleandomycin tramadol vardenafil What if I miss a dose? If you miss a dose, take it as soon as you can. If it is almost time for your next dose, take only that dose. Do not take double or extra doses. Where should I keep my medicine? Keep out of the reach of children. Store at room temperature between 15 and 30 degrees C (59 and 86 degrees F). Keep container tightly closed. Throw away any unused medicine after the expiration date. What should I tell my health care provider before I take this medicine? They need to know if you have any of these conditions: heart disease, irregular heartbeat, or previous heart attack liver disease thyroid problem an unusual or allergic reaction to cyclobenzaprine, tricyclic antidepressants, lactose, other medicines, foods, dyes, or preservatives or trying to get breast-feeding What should I watch for while using this medicine? Check with your doctor or health care transitions manager if your condition does not improve within 1 to 3 weeks. You may get drowsy or dizzy when you first start taking the medicine or change doses. Do not drive, use machinery, or do anything that may be dangerous until you know how the medicine affects you. Stand or sit up slowly. Your mouth may get dry. Drinking water, chewing sugarless gum, or sucking on hard candy may help. You have been given the following additional information: Neck Pain, No Trauma Neck Sprain/Strain Naproxen Sodium Oral tablet Cyclobenzaprine Hydrochloride Oral tablet (Electronically signed by Maria De Jesus Cristina A.R.NIzaPIza 04/01/2016 18:59)
--- NOTE | 2016-04-01 19:00 | ED MED RECONCILIATION SUMMARY ---
Patient: YEIMY MOCTEZUMA Medication Reconciliation Report [facility] VisitID: [id number] [address] [place] [address] 25y, M Registration Date/Time: 04/01/2016 Weight: 81.6 kg Height/Length: 74 in. BMI: 23.1 ALLERGIES: Gabapentin, Hydrocodone, Penicillins The patient's Home Medications are listed below: THE FOLLOWING MEDICATIONS NEED TO BE RECONCILED: Clindamycin HCl Oral The source(s) of the original Home Medication information: patient The following Medications were given to the patient in the Emergency Department: None. The following Medications were prescribed to the patient: Naproxen 500 mg tablets: take 1 orally every 12 hours as needed for pain. Dispense twenty (20). No refills. -- Maria De Jesus Cristina A.R.NIzaP. Flexeril 10 mg: Take 1 orally every 8 hours as needed for muscle spasm. Dispense twenty (20). No refills. Substitution is permissible. -- Maria De Jesus Cristina A.R.N.P.
--- NOTE | 2016-04-01 19:00 | ED MAR SUMMARY ---
..... Medication Administration Record [facility] [address] [place], [place] [id number] Patient: YEIMY MOCTEZUMA Visit ID: [id number] 25y, M Weight: 81.6 kg Height/Length: 74 in BMI: 23.1 ALLERGIES: Hydrocodone, Gabapentin, Penicillins
== END 2016-04-01 18:13 | disposition home or self-care (01) ==
LOC: ED SRH 17:12
DX: S16.1XXA Strain of muscle, fascia and tendon at neck level, initial encounter (principal); W22.8XXA Striking against or struck by other objects, initial encounter; Y93.9 Activity, unspecified; Y92.9 Unspecified place or not applicable; Y99.9 Unspecified external cause status; F17.200 Nicotine dependence, unspecified, uncomplicated